=== PATIENT | male | born 1990 | race Caucasian/White ===

== ENCOUNTER 2022-12-03 12:27 | Emergency (ER) | payer OTHER, BC, SELFPAY ==
--- NOTE | ~2022-12-03 | XR_ITS ---
EXAMINATION: XR knee RT 3V DATE: 12/03/2022 12:56 INDICATION: Right knee injury and pain. TECHNIQUE: 3 views of right knee were obtained. COMPARISON: None. FINDINGS: Bone alignment is normal. No fracture. Joint spaces are normal. There is a large knee joint effusion. IMPRESSION: 1. Large knee joint effusion. Reviewed, dictated and finalized at location A.
[2022-12-03 12:42] VITALS: BP 140/83; PULSE 92; RESP 16; TEMP 36.5; O2SAT 98
--- NOTE | 2022-12-03 13:33 | ED.LOWEXIN ---
HPI - Extremity Injury (Lower) General Chief Complaint: Extremity Injury, Lower Stated Complaint: R KNEE INJURY Time Seen by Provider: 12/03/22 13:10 Source: patient, family, RN notes reviewed and old records reviewed Mode of arrival: ambulatory (on crutches no weight bearing right leg) Limitations: no limitations History of Present Illness HPI Narrative: 31 year old male accompanied by and children presents to express care on crutches with complaints of injury to his right knee yesterday at work when he got his booted right foot stuck in new asphalt. Patient states that when he tried to pull his foot out he twisted his knee and heard a pop.Patient reports that pain is 8/10 and sharp,can't put any weight on right leg due to discomfort and increases if attempts to bend knee. Patient has noted swelling with tenderness medial and lateral and anterior aspects of right knee on palpation. MD complaint: knee injury (swelling and pain) Onset (ago): day(s) (1 day ago) Type of Injury: other (twisted) Place: work Severity scale (1-10): 8 Exacerbating factors: weight bearing and movement Treatments prior to arrival: cold therapy, NSAIDS and other (no weight bearing, elevation) Related Data Home Medications Medication Instructions Recorded Confirmed No Home Medications 12/03/22 12/03/22 Allergies Allergy/AdvReac Type Severity Reaction Status Date / Time No Known Allergies Allergy Verified 12/03/22 12:43 Review of Systems Review of Systems: CONSTITUTIONAL: Denies fever, chills, or sweats. EYES: Denies visual changes, redness, or discharge. ENT: Denies rhinorrhea, congestion, sore throat, or otalgia. CARDIOVASCULAR: Denies chest pain, palpitations, or edema. RESPIRATORY: Denies cough or dyspnea. GASTROINTESTINAL: Denies abdominal pain, nausea, vomiting, or diarrhea. GENITOURINARY: Denies dysuria or hematuria. SKIN: Denies rash or itching. MUSCULOSKELETAL: Denies back pain,positive for right knee joint pain, or myalgia. NEUROLOGIC: Denies headache, numbness, or weakness. PSYCHIATRIC: Denies anxiety or depression. All systems reviewed & are unremarkable except as noted in HPI and below [facility] [place] Social History Social History (Updated 12/05/22 @ 21:05 by Erum Queen NP) Smoking status: Never smoker Alcohol intake: current Alcohol use details: social Substance use type: does not use Living arrangements: with family Gender identity (if verbalized by the patient): Male Comments At time of signature, agree with nursing past medical, surgical, social and family history. There is no relevant family history pertinent to the presenting complaint Exam Narrative: GENERAL: Well-appearing, well-nourished, and in some acute distress related to pain of his right knee. HEAD: Normocephalic, atraumatic. EYES: PERRLA and EOMI. ENT: Nares clear, no rhinorrhea or epistaxis. Mucous membranes moist. NECK: Supple.no lymphadenopathy CHEST: Clear to auscultation. No respiratory distress.SAO2 98% on room air HEART: Regular rate and rhythm. No murmur heard. Normal peripheral pulses. ABDOMEN: Soft, nontender, nondistended, normal active bowel sounds. EXTREMITIES: Normal range of motion. No edema.Exception noted to right knee which is swollen and has palpable swelling to knee and tissue above knee also, patient is able to extend and flex foot but is unable to bend knee due to pain and swelling, pedal pulse present of good quality. SKIN: Warm, dry, no rash. NEURO: No focal deficits. Alert and oriented x3. Course Course Emergency Course: Patient is aware of diagnosis, understands and agrees to treatment plan.? Anticipatory guidance given.? Patient agrees to follow-up as directed and is aware of reasons to seek care at the emergency department. Portions of this record may have been created with voice recognition software Level of Care: Express Care Visit Vital Signs Vital signs: Vital Signs Temperature 36.5 C 12/03/22
== END 2022-12-03 14:05 | disposition short-term general hospital (02) ==
PROVIDERS: Emergency Provider Registered Nurse
DX: M25.461 Effusion, right knee (principal)
CPT/HCPCS: 73562; 99213; G0463